=== PATIENT | male | born 1955 | race African-American/Black ===

== ENCOUNTER 2016-09-20 09:52 | Emergency (ER) | payer MEDICARE ==
--- NOTE | ~2016-09-20 | EKG ---
PATIENT: TYRA BANDA UNIT #: [id number] Ventricular Rate: 92 BPM Atrial Rate: 92 BPM P-R Interval: 158 ms QRS Duration: 100 ms Q-T Interval: 388 ms QTC Calculation(Bezet): 479 ms P [place]: 65 degrees Calculated R [place]: 48 degrees Calculated T [place]: -120 degrees Diagnosis Line: Normal sinus rhythm Diagnosis Line: Left ventricular hypertrophy with repolarization Diagnosis Line: abnormality Diagnosis Line: Abnormal ECG Diagnosis Line: No previous ECGs available Diagnosis Line: Confirmed by JERLIYN GIL MD ([id number]) on 09/23/2016 Diagnosis Line: 10:44:54 PM INTERPRETING MD: LOUISE XIE
--- NOTE | ~2016-09-20 | CR72 ---
[facility] A Service of [facility] & [facility] RADIOLOGY TEXT RESULTS PATIENT: TYRA BANDA LOCATION: [facility] : 53 UNIT #: [id number] AGE: [address]: Wolfgang Awan MD SEX: M ORDER DR: [id number] [facility] [address] [place], [place] [address] [id number] E MR#: [id number] Acc #: [id number] NAME: TYRA BANDA : 1955 SEX: M STUDY DATE/TIME: 09/20/2016 9:37 UNIT: [facility] ROOM: STUDY DESCRIPTION: CR Chest Single View Portable Attending Physician: Wolfgang Awan M.D. Ordering Physician: Wolfgang Awan M.D. Primary Care Physician: Primary Care Physician No MEDICAL IMAGING REPORT This report is preliminary unless electronic signature is present EXAM Portable chest 09/20/2016 COMPARISON STUDIES None. HISTORY Cough, shortness of breath for 1 week. FINDINGS An AP portable view is obtained. Cardiac size appears borderline enlarged with postop changes of sternotomy, valve replacement and bypass. Lungs are expanded to the chest wall. They appear clear. CONCLUSION Mild cardiomegaly. No active disease. Dictated by... Tyra Arce M.D. THIS IS AN ELECTRONICALLY VERIFIED REPORT Tyra Arce M.D. at 09/23/2016 2:43 PM TREVIN/shila TD: 09/20/2016 10:32 JOB #: [id number] MEDICAL IMAGING REPORT Page 1 of 1 COPY
[2016-09-20 09:48] LABS: BASOPHIL% 0.7 % (0-2.5); EOSINOPHIL# 0.1 X10e3 (0-0.7); EOSINOPHIL% 2.4 % (0.0-7.0); HEMATOCRIT 32.3 % (38.0-50.0); HEMOGLOBIN 10.8 gm/dL (13.0-16.0); LYMPHOCYTE# 0.8 X10e3 (1.0-3.5); LYMPHOCYTE% 14.2 % (17.0-45.0); MEAN CELL VOLUME 90.6 FL (83-96); MEAN CORPUSCULAR HEMOGLOBIN 30.4 PG (28-34); MEAN CORPUSCULAR HGB CONC 33.5 g/dL (30-36); MEAN PLATELET VOLUME 7.9 FL (6.5-11.5); MONOCYTE# 0.5 X10e3 (0-1.0); MONOCYTE% 7.7 % (3.0-12.0); NEUTROPHIL# 4.4 X10e3 (1.5-7.1); PLATELET COUNT 167 X10e3 (140-420); RED BLOOD COUNT 3.56 X10e (3.90-5.60); RED CELL DISTRIBUTION WIDTH 14.8 % (11.0-15.5); WHITE BLOOD COUNT 5.9 X10e3 (4.0-10.5)
[2016-09-20 09:55] LABS: POC - TROPONIN <0.05 ng/mL (<=0.05)
[2016-09-20 09:57] LABS: DIFF IND NO
[2016-09-20 10:05] LABS: PROTHROMBIN TIME (PATIENT) 10.5 SECONDS (9.6-11.5)
[2016-09-20 10:40] LABS: ALBUMIN SERUM 3.3 g/dL (3.5-5.0); BILIRUBIN, DIRECT 0.1 mg/dL (0.0-0.2); BILIRUBIN,INDIRECT 0.3 mg/dL (0.0-0.9); BILIRUBIN,TOTAL 0.4 mg/dL (0.2-2.0); BUN/CREATININE RATIO 10.57; CALCIUM SERUM 8.5 mg/dL (8.4-10.2); CREATININE SERUM 3.5 mg/dL (0.6-1.4); GLOM FILT RATE Estimated 20.5 mL/min (>60); POTASSIUM 4.2 mmol/L (3.5-5.1); PROTEIN TOTAL SERUM 6.7 g/dL (6.0-8.3)
[2016-09-20] MEDS ORDERED: FUROSEMIDE40 MG PO (11:20)
[2016-09-20] MEDS ORDERED: HYDRALAZINE HCL25 MG PO (11:21)
[2016-09-20] MEDS ORDERED: FLOMAX0.4 M1 PO (11:21)
[2016-09-20] MEDS ORDERED: COREG PO (11:21)
[2016-09-20] MEDS ORDERED: LIPITOR20 MG PO (11:21)
[2016-09-20] MEDS ORDERED: NOVOLOG100 U/M1 SUBQ (11:22)
[2016-09-20] MEDS ORDERED: LANTUS100 U/ML SUBQ (11:22)
== END 2016-09-20 12:44 | disposition home or self-care (01) ==
LOC: CED 09:52
PROVIDERS: Emergency Medicine
DX: J44.9 Chronic obstructive pulmonary disease, unspecified (principal); I12.9 Hypertensive chronic kidney disease with stage 1 through stage 4 chronic kidney disease, or unspecified chronic kidney disease; N18.9 Chronic kidney disease, unspecified; E11.9 Type 2 diabetes mellitus without complications; F17.210 Nicotine dependence, cigarettes, uncomplicated; Z79.4 Long term (current) use of insulin; Z79.899 Other long term (current) drug therapy
CPT/HCPCS: 36415; 71010; 80048; 80076; 82553; 83880; 84484; 85025; 85610; 87040; 93005; 94640; 96374; 99284; J2930

== ENCOUNTER 2016-10-10 15:58 | Emergency (ER) | payer MEDICARE ==
--- NOTE | ~2016-10-10 | CR126 ---
[facility]. [facility] A Service of [facility] & [facility] RADIOLOGY TEXT RESULTS PATIENT: TYRA BANDA LOCATION: SED : 53 UNIT #: [id number] AGE: [address]: Eneida Estevez MD SEX: M ORDER DR: [id number] [place] [id number] E MR#: [id number] Acc #: [id number] NAME: TYRA BANDA : 1955 SEX: M STUDY DATE/TIME: 10/10/2016 16:37 UNIT: SED ROOM: STUDY DESCRIPTION: CR Foot Complete Min 3 View Lt Attending Physician: Eneida Estevez M.D. Ordering Physician: Eneida Estevez M.D. Primary Care Physician: Primary Care Physician No MEDICAL IMAGING REPORT This report is preliminary unless electronic signature is present. EXAM Left foot 3 views HISTORY SUPPLIED Left foot swelling beginning 2 days ago FINDINGS 3 views of the left foot are submitted. There is a small vessel calcifications present. Bony elements appear intact with no fractures. There is no bone destruction or periostitis. There are degenerative changes in the first MTP joint of the IP joint of the great toe. Small calcaneal spurs present. CONCLUSION Extensive vascular calcifications and mild degenerative changes, otherwise negative. Dictated by... Tyra Arce M.D. THIS IS AN ELECTRONICALLY VERIFIED REPORT Tyra Arce M.D. at 10/10/2016 10:17 PM TREVIN/lata TD: 10/10/2016 21:47 JOB #: [id number] MEDICAL IMAGING REPORT Page 1 of 1
--- NOTE | ~2016-10-10 | CR72 ---
[facility] A Service of [facility] & [facility] RADIOLOGY TEXT RESULTS PATIENT: TYRA BANDA LOCATION: SED : 53 UNIT #: [id number] AGE: [address]: Eneida Estevez MD SEX: M ORDER DR: [id number] [place] [id number] E MR#: [id number] Acc #: [id number] NAME: TYRA BANDA : 1955 SEX: M STUDY DATE/TIME: 10/10/2016 16:37 UNIT: SED ROOM: STUDY DESCRIPTION: CR Chest Single View Portable Attending Physician: Eneida Estevez M.D. Ordering Physician: Eneida Estevez M.D. Primary Care Physician: Primary Care Physician No MEDICAL IMAGING REPORT This report is preliminary unless electronic signature is present. EXAM AP portable chest HISTORY Leg swelling, shortness of breath, history of heart failure beginning 2 days ago. FINDINGS An AP view is obtained. Cardiac size is enlarged. There is linear scarring in the right base and postop changes of prior valve replacement. Lungs are expanded to the chest wall, they are clear and no acute process is seen. CONCLUSION Stable cardiac enlargement. Postop changes of prior valve replacement. Right basilar scarring. No acute process seen. Dictated by... Tyra Arce M.D. THIS IS AN ELECTRONICALLY VERIFIED REPORT Tyra Arce M.D. at 10/10/2016 10:17 PM TREVIN/silvestre TD: 10/10/2016 21:50 JOB #: [id number] MEDICAL IMAGING REPORT Page 1 of 1
--- NOTE | ~2016-10-10 | CR127 ---
[facility] A Service [facility] RADIOLOGY TEXT RESULTS PATIENT: TYRA BANDA LOCATION: SED : 53 UNIT #: [id number] AGE: [address]: Eneida Estevez MD SEX: M ORDER DR: [id number] [place] [id number] E MR#: [id number] Acc #: [id number] NAME: TYRA BANDA : 1955 SEX: M STUDY DATE/TIME: 10/10/2016 16:37 UNIT: SED ROOM: STUDY DESCRIPTION: CR Foot Complete Min 3 View Rt Attending Physician: Eneida Estevez M.D. Ordering Physician: Eneida Estevez M.D. MEDICAL IMAGING REPORT This report is preliminary unless electronic signature is present. EXAM Right foot 3 views HISTORY Leg swelling for years. HISTORY CHF, stage 3 renal disease. FINDINGS 3 views of the right foot demonstrates postsurgical changes from prior transmetatarsal amputation at the level of the proximal first, second, third metatarsals, as well as near the metatarsal base of the fourth metatarsal and apparent complete amputation of the fifth metatarsal. Soft tissue swelling noted about the stump with some areas of induration and vascular calcifications noted compatible atherosclerotic disease. No discrete penetrating ulcer identified. No osteolysis or focal periostitis is identified. IMPRESSION 1. Postsurgical changes from previous midfoot transmetatarsal amputation. 2. Soft tissue swelling about the distal stump but no focal osseous change is identified to suggest osteomyelitis. No soft tissue gas identified. Dictated by... Gokul Vernon M.D. THIS IS AN ELECTRONICALLY VERIFIED REPORT [facility] A Service [facility] RADIOLOGY TEXT RESULTS PATIENT: TYRA BANDA LOCATION: SED : 53 UNIT #: [id number] AGE: [address]: Eneida Estevez MD SEX: M ORDER DR: Gokul Vernon M.D. at 10/11/2016 6:36 PM LYLY/silvia TD: 10/10/2016 21:49 JOB #: [id number] MEDICAL IMAGING REPORT Page 1 of 1
--- NOTE | ~2016-10-10 | EKG ---
PATIENT: TYRA BANDA UNIT #: [id number] Ventricular Rate: 78 BPM Atrial Rate: 78 BPM P-R Interval: 152 ms QRS Duration: 94 ms Q-T Interval: 406 ms QTC Calculation(Bezet): 462 ms P [place]: 42 degrees Calculated R [place]: 25 degrees Calculated T [place]: -148 degrees Diagnosis Line: Normal sinus rhythm Diagnosis Line: Left ventricular hypertrophy with repolarization Diagnosis Line: abnormality Diagnosis Line: Abnormal ECG Diagnosis Line: When compared with ECG of 20-SEP-2016 09:13, Diagnosis Line: Non-specific change in ST segment in Anterior Diagnosis Line: leads Diagnosis Line: Confirmed by HOUSTON FOFANA MD ([id number]) on Diagnosis Line: 10/12/2016 12:03:53 PM INTERPRETING MD: CT XIE
[2016-10-10 15:33] LABS: POC - CKMB 1.1 ng/mL (0.0-7.9); POC - TROPONIN <0.05 ng/mL (<=0.05)
[2016-10-10 15:54] LABS: BASOPHIL# 0.1 X10e3 (0-0.3); EOSINOPHIL# 0.2 X10e3 (0-0.7); EOSINOPHIL% 2.5 % (0.0-7.0); HEMATOCRIT 31.3 % (38.0-50.0); HEMOGLOBIN 10.6 gm/dL (13.0-16.0); LYMPHOCYTE# 0.6 X10e3 (1.0-3.5); LYMPHOCYTE% 9.9 % (17.0-45.0); MEAN CELL VOLUME 90.6 FL (83-96); MEAN CORPUSCULAR HEMOGLOBIN 30.7 PG (28-34); MEAN CORPUSCULAR HGB CONC 33.9 g/dL (30-36); MEAN PLATELET VOLUME 7.4 FL (6.5-11.5); MONOCYTE# 0.5 X10e3 (0-1.0); MONOCYTE% 7.3 % (3.0-12.0); NEUTROPHIL% 79.3 % (40-75); PLATELET COUNT 187 X10e3 (140-420); RED BLOOD COUNT 3.45 X10e (3.90-5.60); RED CELL DISTRIBUTION WIDTH 14.7 % (11.0-15.5); WHITE BLOOD COUNT 6.3 X10e3 (4.0-10.5)
[~2016-10-10 15:58] MED LIST: COREG PO; FLOMAX0.4 M1 PO; FUROSEMIDE40 MG PO; HYDRALAZINE HCL25 MG PO; LANTUS100 U/ML SUBQ; LIPITOR20 MG PO; NOVOLOG100 U/M1 SUBQ
[2016-10-10 16:00] LABS: ALBUMIN SERUM 3.3 g/dL (3.5-5.0); BILIRUBIN, DIRECT 0.1 mg/dL (0.0-0.2); BILIRUBIN,INDIRECT 0.3 mg/dL (0.0-0.9); BILIRUBIN,TOTAL 0.4 mg/dL (0.2-2.0); BUN/CREATININE RATIO 12.5; CALCIUM SERUM 8.9 mg/dL (8.4-10.2); CREATININE SERUM 3.6 mg/dL (0.6-1.4); GLOM FILT RATE Estimated 19.8 mL/min (>60); POTASSIUM 4.2 mmol/L (3.5-5.1); PROTEIN TOTAL SERUM 6.6 g/dL (6.0-8.3)
[2016-10-10 16:02] LABS: DIFF IND NO
[2016-10-10 16:58] LABS: SEDIMENTATION RATE-SW ONLY 60 mm/hr (0-35)
== END 2016-10-10 20:02 ==
LOC: SED 15:58
PROVIDERS: Student in an Organized Health Care Education/Training Program
DX: E11.621 Type 2 diabetes mellitus with foot ulcer (principal); I11.0 Hypertensive heart disease with heart failure; I50.9 Heart failure, unspecified; N19 Unspecified kidney failure; I73.9 Peripheral vascular disease, unspecified; E78.5 Hyperlipidemia, unspecified; Z98.890 Other specified postprocedural states; Z95.1 Presence of aortocoronary bypass graft
CPT/HCPCS: 36415; 71010; 73630; 80048; 80076; 82553; 82947; 83605; 83880; 84484; 85025; 85651; 86140; 93005; 96365; 96375; 99284; J1940; J2543; J3370